=== PATIENT | female | born 2000 | race Caucasian/White ===

== ENCOUNTER 2024-01-08 21:06 | Emergency (ER) | payer MEDICAID ==
[~2024-01-08] VITALS: Ht 172.7 cm; Wt 63.5 kg
[2024-01-08] MEDS ORDERED: KETOROLAC TROMETHAMINE INJ 30 MG/ML VIAL ONE (23:06)
[2024-01-08] MEDS: KETOROLAC TROMETHAMINE INJ 60 MG/2 ML VIAL IM ONE (23:15)
[2024-01-08] MEDS ORDERED: KETO10TA2 PO (23:50)
[2024-01-09] VITALS: BP 125/81; TEMP 98.6; O2SAT 98
== END 2024-01-09 00:02 | disposition home or self-care (01) ==
LOC: ER 21:15
DX: S50.12XA Contusion of left forearm, initial encounter (principal); V49.88XA Car occupant (driver) (passenger) injured in other specified transport accidents, initial encounter; Y93.89 Activity, other specified; Y92.89 Other specified places as the place of occurrence of the external cause; Y99.8 Other external cause status; Z88.8 Allergy status to other drugs, medicaments and biological substances
CPT/HCPCS: 99284; 96372; 73090; 73130; J1885